=== PATIENT | female | born 1955 | race Caucasian/White ===

== ENCOUNTER 2020-02-26 10:00 | Outpatient (RCR) | payer MEDICARE, BC, SELFPAY ==
--- NOTE | 2020-02-24 16:20 | PTOPEVAL ---
INITIAL PHYSICAL THERAPY EVALUATION and PLAN OF CARE Thank you for referring Samina Nolasco to [facility] Samina is scheduled to be seen for physical therapy? 2x/week for 2 weeks, 1x/wk x 2 wks. Please review, sign, date and return this plan of care AUGUSTO. I agree with and certify that the following plan of care is medically necessary. Referring Physician Date Admitting Provider: Attending Provider: PHYSICIAN NOT ON STAFF Referring Provider: *PT Outpatient Evaluation Start: 02/24/20 12:43 Freq: Status: Active Protocol: Document 02/24/20 12:35 VIANNEY (Rec: 02/24/20 14:01 VIANNEY [id number]) Therapy Assessment Status Assessment Status Assessment Status Evaluation Outpatient Past Medical History Past Medical History Source of Past Medical History Patient Neurological History Hx Neurological Disorders No Significant History Cardiovascular History Hx Hypercholesterolemia Yes Hx Hypertension Yes Respiratory History Hx Respiratory Disorders No Significant History Gastrointestinal History Hx Gastroesophageal Reflux Disease Yes Genitourinary History Hx Genitourinary Disorders No Significant History Musculoskeletal History Hx Musculoskeletal Disorders No Significant History Endocrine History Hx Diabetes Yes Evaluation Information Problem Diagnosis L greater trochanteric pain syndrome, lumbopelvic instability Onset for awhile - got worse in early January 2020 Subjective Information beginning in January - L hip Query Text:As Reported By Patient/ pain - got worse - no reason - Family was shopping in [place] on one occasion - didn't think she could make it to the car. Now able to lie on her side again - can lie on L side for a little bit - but there was a time where she had to lie straight on her back. With prolonged walking - will having a stiffening sensation in L hip. On occasions will feel some discomfort on the R. Will take Naproxyn on occasions for the increase discomfort. First thing in morning - feels good. Worsens with prolonged walking - lower back and L hip. Diagnostic Tests X-Rays For This Problem Yes Prior Level of Function Activity Level (Last 3 Months)
--- NOTE | 2020-03-01 11:58 | PCPTNOTE ---
Patient called & cancelled scheduled appointment this date due to inability to make appointment.
--- NOTE | 2020-03-04 12:32 | PCPTNOTE ---
Patient called & cancelled scheduled appointment this date due to thinks she is doing well. She cancelled the remainder of her appointments. Will d/c from PT.
--- NOTE | 2020-03-04 12:32 | PCPTNOTE ---
PHYSICAL THERAPY DISCHARGE SUMMARY Admitting Provider: Attending Provider: PHYSICIAN NOT ON STAFF Patient:Samina Nolasco Date of :1955 Samina has not returned for any further treatments since 02/26/2020. She called to cancel the remaining appointments - stated that she is doing well and doesn't need further PT. Therefore she will be discharged at this time. Patient?s initial visit was on 02/24/2020 12:30 and she had a total of 2 visits. The goals have been met. Thank you for referring Samina to [facility]. Please review, sign, date and return this discharge summary AUGUSTO. I have been updated about Samina's current status and I agree with discharge from the above service at this time. Referring Physician Date
== END 2020-03-22 15:08 | disposition home or self-care (01) ==
LOC: ANHPT 10:00
DX: M70.62 Trochanteric bursitis, left hip (principal); M53.2X7 Spinal instabilities, lumbosacral region
CPT/HCPCS: 97035; 97110; 97161

== ENCOUNTER 2021-12-08 11:20 | Emergency (ER) | payer MEDICARE, BC, SELFPAY ==
[2021-12-08 11:29] VITALS: BP 138/78; PULSE 65; RESP 16; TEMP 36.9; O2SAT 99
--- NOTE | 2021-12-08 12:01 | ED.URI ---
HPI - URI/Sore Throat General Chief Complaint: Upper Respiratory Infection Stated Complaint: congestion, cough Time Seen by Provider: 12/08/21 11:45 Source: patient, RN notes reviewed and old records reviewed Mode of arrival: ambulatory Limitations: no limitations History of Present Illness HPI Narrative: 66 year old female presents to [facility] with complaints of having post nasal drainage, dry cough which is worse at night for the past 5 days. Patient states that she has been taking Cephalexin three times a day for her Rosacea flair but it doesn't seem to be helping her cough. Patient reports that she has hardly slept at all last night due to cough and she is loosing her voice. Patient reports that she has been taking Mucinex and Claritin for her symptoms also. Patient denies any shortness of breath. Patient has taken 2 home COVID tests which were negative. MD elicited complaint: cough, rhinorrhea and nasal congestion Treatments prior to arrival: antibiotics and other (Mucinex and Claritin) Related Data Home Medications Medication Instructions Recorded Confirmed amlodipine 5 mg tablet mg 12/08/21 atenolol 100 mg tablet mg 12/08/21 cephalexin 500 mg capsule mg 12/08/21 clobetasol 0.05 % scalp solution topical 12/08/21 fluorouracil 5 % topical cream applic topical 12/08/21 metformin 500 mg tablet mg 12/08/21 rosuvastatin 40 mg tablet mg 12/08/21 sumatriptan succinate 100 mg tablet mg PO 12/08/21 valsartan 160 tablet 12/08/21 mg-hydrochlorothiazide 25 mg tablet Allergies Allergy/AdvReac Type Severity Reaction Status Date / Time amoxicillin Allergy Hives Verified 12/08/21 11:49 erythromycin base Allergy Hives Verified 12/08/21 11:49 tetracycline Allergy Hives Verified 12/08/21 11:49 Review of Systems Review of Systems: CONSTITUTIONAL: Denies fever, chills, or sweats. EYES: Denies visual changes, redness, or discharge. ENT: Positive for rhinorrhea, congestion, no sore throat, or otalgia. CARDIOVASCULAR: Denies chest pain, palpitations, or edema. RESPIRATORY: Positive for cough, denies dyspnea.voice is raspy GASTROINTESTINAL: Denies abdominal pain, nausea, vomiting, or diarrhea. GENITOURINARY: Denies dysuria or hematuria. SKIN: Denies rash or itching. MUSCULOSKELETAL: Denies back pain, joint pain, or myalgia. NEUROLOGIC: Denies headache, numbness, or weakness. PSYCHIATRIC: Denies anxiety or depression. All systems reviewed & are unremarkable except as noted in HPI and below PMFSH Past Medical History Medical History (Updated 12/08/21 @ 17:44 by Daniella Gonzalez NP) Diabetes Elevated cholesterol GERD (gastroesophageal reflux disease) Hypertension Rosacea Surgical History Surgical History (Updated 12/08/21 @ 17:45 by Daniella Gonzalez NP) History of tonsillectomy Hx of breast reduction, elective Social History Social History (Updated 12/08/21 @ 17:46 by Daniella Gonzalez NP) Smoking status: Never smoker Alcohol intake: current Alcohol use details: rare social Substance use: never Living arrangements: with family Gender identity (if verbalized by the patient): Female Comments At time of signature, agree with nursing past medical, surgical, social and family history. There is no relevant family history pertinent to the presenting complaint Exam Narrative: GENERAL: Well-appearing, well-nourished, obese and in no acute distress. HEAD: Normocephalic, atraumatic. EYES: PERRLA and EOMI. ENT: Nares red with clear rhinorrhea no epistaxis. Mucous membranes moist.TM's normal with good light reflex, throat with mild redness nor lesions exudates or tonsils present, post nasal discharge NECK: Supple.no lymphadenopathy CHEST: Clear to auscultation. No respiratory distress.SAO2 99% on room air HEART: Regular rate and rhythm. No murmur heard. Normal peripheral pulses. ABDOMEN: Soft, nontender, nondistended, normal active bowel sounds. EXTREMITIES: Normal range of motion. No edema. SKIN: Wa
== END 2021-12-08 12:20 | disposition home or self-care (01) ==
PROVIDERS: Emergency Provider Registered Nurse; PCP Internal Medicine
DX: J06.9 Acute upper respiratory infection, unspecified (principal); R05.9 Cough, unspecified; E11.9 Type 2 diabetes mellitus without complications; K21.9 Gastro-esophageal reflux disease without esophagitis; I10 Essential (primary) hypertension; L71.9 Rosacea, unspecified
CPT/HCPCS: 99213; G0463

== ENCOUNTER 2024-08-28 13:50 | Outpatient (CLI) | payer MEDICARE, BC, SELFPAY ==
--- NOTE | ~2024-08-28 | DEXA_ITS ---
Bone Density Report Name: ANJELICA WALSH Age: 69 Sex: Female Ethnicity: White Date of : 1955 Indication: postmenopausal; screening for osteoporosis; height loss; Referring Provider: Kenia, Edmund Jernigan Study: Bone densitometry was performed. Exam Date: August 28, 2024 Accession number: [id number] Bone Density: Region BMD T-score Z-score Classification AP Spine(L1-L4) 1.199 1.4 3.6 Normal Femoral Neck (Left) 0.781 -0.6 1.2 Normal Total Hip (Left) 1.038 0.8 2.4 Normal Femoral Neck (Right) 0.801 -0.4 1.4 Normal Total Hip (Right) 1.077 1.1 2.7 Normal Total Hip Mean 1.058 1.0 2.6 Normal World Health Organization criteria for BMD impression classify patients as: Normal (T-score at or above -1.0), Osteopenia (T-score between -1.0 and -2.5), or Osteoporosis (T-score at or below -2.5). 10-year Fracture Risk: FRAX not reported because: All T-scores for Spine Total, Hip Total, Femoral Neck at or above -1.0 Clinical Information Provided by Patient: Has used the following medications: Vitamin D, Calcium Patient maximum height was 64 Menopause Age: 51 No regular weight bearing exercise Does not regularly consume dairy products Drinks caffeinated beverages Onset of menses at age 11 Number of children 2 Impression: The patient has normal bone mass. Discussion: BONE DENSITY IS ABOVE THE MINIMUM DESIRABLE LEVEL AT ALL SKELETAL SITES TESTED. This patient?s bone mineral density is above the minimum desirable level (T-score -1.0 or better) at all sites measured. The patient should follow a healthful lifestyle (good nutrition with adequate calcium and vitamin D, and appropriate weight-bearing exercise). Follow-Up: Consider repeating this study in 5 years or sooner if there is some new clinical indication. Reported by: DEON on 08/28/2024 2:15:00 PM. Reviewed, dictated and finalized at location A.
== END 2024-08-28 13:51 | disposition home or self-care (01) ==
LOC: MICIMG 13:50
PROVIDERS: PCP Internal Medicine; Visit Provider Internal Medicine
DX: Z78.0 Asymptomatic menopausal state (principal)
CPT/HCPCS: 77080